=== PATIENT | female | born 1980 | race African-American/Black ===

== ENCOUNTER 2017-04-02 10:38 | Emergency (ER) | payer OTHER ==
[~2017-04-02] VITALS: Ht 157.5 cm; Wt 77.0 kg
[2017-04-02 10:39] VITALS: BP 160/79; PULSE 79; RESP 16; TEMP 98.2; O2SAT 99
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
[2017-04-02] MEDS ORDERED: IBUP800T23 PO (13:00)
[2017-04-02 13:08] VITALS: BP 132/65
== END 2017-04-02 13:09 | disposition home or self-care (01) ==
LOC: NEPK 10:38
DX: S00.83XA Contusion of other part of head, initial encounter (principal); Y04.0XXA Assault by unarmed brawl or fight, initial encounter
CPT/HCPCS: 70450; 70486; 84703; 99285